=== PATIENT | female | born 1995 | race African-American/Black ===

== ENCOUNTER 2019-07-12 16:14 | Emergency (ER) | payer OTHER ==
[~2019-07-12] VITALS: Ht 165.1 cm; Wt 52.2 kg
[2019-07-12 17:48] VITALS: BP 131/74
== END 2019-07-12 17:49 | disposition home or self-care (01) ==
LOC: M.ERS 16:14
DX: S01.81XA Laceration without foreign body of other part of head, initial encounter (principal); F41.9 Anxiety disorder, unspecified; W22.8XXA Striking against or struck by other objects, initial encounter; Y93.89 Activity, other specified; Y92.89 Other specified places as the place of occurrence of the external cause; Y99.8 Other external cause status